=== PATIENT | female | born 1985 | race Two or more races ===

== ENCOUNTER 2023-06-12 13:28 | Emergency (ER) | payer OTHER ==
[~2023-06-12] VITALS: Ht 170.2 cm; Wt 95.7 kg
== END 2023-06-12 18:47 | disposition home or self-care (01) ==
LOC: ER 13:29
DX: R05.8 Other specified cough (principal); Z91.013 Allergy to seafood; Z20.822 Contact with and (suspected) exposure to COVID-19

== ENCOUNTER 2023-07-30 18:06 | Emergency (ER) | payer OTHER ==
[~2023-07-30] VITALS: Ht 170.2 cm; Wt 95.3 kg
[2023-07-30] MEDS ORDERED: 0.9 % SODIUM CHLORIDE 1,000 ML IV SCH (19:00)
[2023-07-30] MEDS ORDERED: DIPHENOXYLATE HCL/ATROPINE 1 UDTAB TABLET PO ONE (19:00)
[2023-07-30] MEDS ORDERED: FAMOTIDINE/PF 20 MG/2 ML VIAL IV ONE (19:00)
[2023-07-30 19:07] LABS: HEMATOCRIT 42.4 % (36.0-45.00); MEAN CELL VOLUME 81.1 fL (80.00-100.00); MEAN CORPUSCULAR HEMOGLOBIN 26.7 pg (27.00-32.0); PLATELET COUNT 327 K/uL (150-450); RED BLOOD COUNT 5.23 M/uL (4.00-6.00); RED CELL DISTRIBUTION WIDTH 15.3 % (11.5-14.5)
[2023-07-30] MEDS ORDERED: DICY20TA PO (20:41)
[2023-07-30] MEDS ORDERED: PEPCID AC20 MG PO (20:41)
== END 2023-07-30 20:54 | disposition home or self-care (01) ==
LOC: ER 18:06
PROVIDERS: General Practice
DX: R10.84 Generalized abdominal pain (principal); K52.89 Other specified noninfective gastroenteritis and colitis; Z20.822 Contact with and (suspected) exposure to COVID-19